=== PATIENT | female | born 1965 ===

== ENCOUNTER 2019-03-04 13:19 | Emergency (ER) | payer OTHER ==
[~2019-03-04] VITALS: Ht 154.9 cm; Wt 78.5 kg
[~2019-03-04 13:19] MED LIST: COZAAR25 MG; XANAX XR0.5 MG
[2019-03-04] MEDS ORDERED: ATORVASTATIN CA20 MG PO (13:55)
[2019-03-04] MEDS ORDERED: TUSSI PRES-B L480 ML PO (15:42)
[2019-03-04] MEDS ORDERED: ZITHROMAX TRI-500 MG PO (15:42)
== END 2019-03-04 15:50 | disposition home or self-care (01) ==
LOC: ER 13:19
DX: B34.9 Viral infection, unspecified (principal)

== ENCOUNTER 2020-10-27 14:32 | Emergency (ER) | payer OTHER ==
[~2020-10-27] VITALS: Ht 154.9 cm; Wt 83.5 kg
[~2020-10-27 14:32] MED LIST changes: +ATORVASTATIN CA20 MG PO; +TUSSI PRES-B L480 ML PO; +ZITHROMAX TRI-500 MG PO
[2020-10-27] MEDS ORDERED: BACTRIM DS TAB1 EACH PO (19:42)
[2020-10-27] MEDS ORDERED: ALPRAZOLAM0.5 MG PO (19:42)
== END 2020-10-27 20:36 | disposition home or self-care (01) ==
LOC: ER 14:32
DX: R42 Dizziness and giddiness (principal); F41.8 Other specified anxiety disorders; E03.9 Hypothyroidism, unspecified; I10 Essential (primary) hypertension

== ENCOUNTER 2023-02-27 08:48 | Outpatient (CLI) | payer OTHER ==
[~2023-02-27 08:48] MED LIST changes: +ALPRAZOLAM0.5 MG PO; +BACTRIM DS TAB1 EACH PO
== END 2023-02-27 08:55 | disposition home or self-care (01) ==
LOC: SONOGRAMA 08:48
PROVIDERS: ATTEND Internal Medicine Endocrinology, Diabetes & Metabolism
DX: K76.1 Chronic passive congestion of liver (principal); E78.2 Mixed hyperlipidemia